=== PATIENT | male | born 1935 | race Caucasian/White ===

== ENCOUNTER → 2019-07-10 | Outpatient (CLI) | payer MEDICARE ==
[~2019-07-10] MED LIST: ALLI60 MG PO; AMIODARONE200 MG PO; AMLODIPINE10 MG PO; ASPIRIN 81M81 MG/TA2 PO; ASPIRIN E.C. 8181 MG PO; AVAPRO150 MG PO; BOSULIF100 MG PO; CALCIUM 600/VIT1 CAP PO; CALCIUM600 M2 PO; CALCIUM600 MG PO; COLACE 100100 MG/CAP PO; COREG 25MG25 MG/TAB PO; COUMADIN 1MG1 MG/TAB PO; COUMADIN 5MG5 MG/TAB PO; COZAAR 50MG50 MG/TAB PO; COZAAR100 MG PO; DESYREL 50MG50 MG PO; DIABETA 5MG5 MG/TAB PO; DIABETA5 MG PO; DIGOXIN0.125 MG PO; GLEEVEC PO; GLUCOSAMINE & C1 CAP PO; GLUCOSAMINE COM1 TAB PO; HCTZ 25MG25 MG PO; IRON325 M1 PO; JANUVIA 100MG100 MG PO; KLOR-CON20 MEQ PO; LANOXIN 0.120.125 MG PO; LANTUS100 U/ML SC; LASIX 40MG TABL40 MG PO; LIPITOR 40MG TA40 MG PO; LOPRESSOR50 MG PO; LOVAZA1 GM PO; MAREPA1200 MG PO; METFORMIN500 MG PO; MULTIPLE VITAMI1 CAP PO; MULTIVITAMIN PO; NIASPAN1000 MG PO; NORVASC 10MG10 MG PO; PACERONE100 MG PO; PRAVACHOL 40MG40 MG PO; PRAVACHOL80 MG PO; PRILOSEC 20MG20 MG PO; REVLIMID15 MG PO; SLO-NIACIN500 MG PO; SPRYCEL100 MG PO; TOPROL XL100 MG PO; VITAMIN D1000 IU PO; VITAMIN D31000 IU PO; WARFARIN2 MG PO
== END ==
LOC: COL.VAS 09:54
DX: I11.0 Hypertensive heart disease with heart failure (principal); I50.20 Unspecified systolic (congestive) heart failure; I25.5 Ischemic cardiomyopathy; I08.1 Rheumatic disorders of both mitral and tricuspid valves

== ENCOUNTER 2021-11-01 10:49 | Inpatient (IN) | payer MEDICARE ==
[2021-11-01] VITALS (535 sets, daily range): BP systolic 85–106; BP diastolic 60–75; PULSE 79–80; TEMP 94.8–97.1; O2SAT 76–100
[~2021-11-01] VITALS: Ht 167.6 cm; Wt 76.1 kg
[2021-11-01 14:01] LABS: BASO % 0.1 % (0.0-2.0); GRAN # 8.1 K/mm3 (1.4-6.5); GRAN % 86.5 % (42.2-75.2); LYMPH # 0.4 K/mm3 (1.2-3.4); LYMPH % 3.8 % (20.0-51.0); MEAN CELL VOLUME 80 fl (80.0-100.0); MEAN CORPUSCULAR HEMOGLOBIN 28 pg (27-31); MEAN CORPUSCULAR HGB CONC 35 g/dl (33.0-37.0); MEAN PLATELET VOLUME 11.4 fl (7.4-10.4); MONO # 0.9 K/mm3 (0.1-0.6); MONO % 9.1 % (1.7-9.3); PLATELET COUNT 352 K/mm3 (130-400); RED BLOOD COUNT 3.97 M/mm3 (4.20-5.60); REDCELL DISTRIBUTION WIDTH-CV 19.1 % (11.5-14.5)
[2021-11-01 14:04] LABS: HEMATOCRIT 31.8 % (42.0-52.0)
[2021-11-01 14:05] LABS: INR 3.8 (0.8-3.0); PROTHROMBIN TIME 43.2 SECONDS (9.7-12.8)
[2021-11-01 14:08] LABS: PARTIAL THROMBOPLASTIN TIME 31.8 SECONDS (26.0-37.0)
[2021-11-01 14:14] LABS: ALBUMIN 2.1 gm/dL (3.4-4.8); BILIRUBIN,TOTAL 0.5 mg/dL (0.2-1.2); C-REACTIVE PROTEIN 4.7 mg/dL (0.00-0.50); CALCIUM 8.4 mg/dL (8.4-10.2); CREATININE, serum 2.59 mg/dL (0.72-1.25); MAGNESIUM 2.2 mg/dL (1.6-2.6); POTASSIUM 4.8 mmol/L (3.5-4.5); TOTAL PROTEIN 6.2 gm/dL (6.2-8.1)
[2021-11-01 14:27] LABS: TROPONIN-I 0.156 ng/mL (0.00-0.033)
[2021-11-01] MEDS ORDERED: ELIQUIS 2.5 PO (14:47)
[2021-11-01] MEDS ORDERED: ALDACTONE 25MG25 M1 PO (14:48)
[2021-11-01] MEDS ORDERED: FARXIGA10 PO (14:48)
[2021-11-01] MEDS ORDERED: BUMEX 1MG TA1 MG/TA1 PO (14:50)
--- NOTE | 2021-11-01 18:45 | NUR ---
APPRAISAL ANALYST here for arterial line insertion. Timeout completed - all in agreement. 9505 Procedure finish time. Left radial arterial line secured with tegaderm and tape
[2021-11-01 20:17] LABS: ARTERIAL BLD GAS O2 SATURATION 99.4 % (92-100); ARTERIAL BLD GAS TCO2 CT 15.7; ARTERIAL BLOOD GAS BASE EXCESS -7.6 (-2-2); ARTERIAL BLOOD GAS pH 7.43 (7.35-7.45)
[2021-11-01 20:21] LABS: ARTERIAL BLOOD GAS PO2 250.1 mmHg (80-100)
[2021-11-02] VITALS (736 sets, daily range): BP systolic 58–116; BP diastolic 45–74; PULSE 79–106; TEMP 36.6; O2SAT 57–100
[2021-11-02 04:57] LABS: HEMATOCRIT 40.3 % (42.0-52.0); MEAN CELL VOLUME 82 fl (80.0-100.0); MEAN CORPUSCULAR HGB CONC 33 g/dl (33.0-37.0); MEAN PLATELET VOLUME 11.6 fl (7.4-10.4); RED BLOOD COUNT 4.92 M/mm3 (4.20-5.60); REDCELL DISTRIBUTION WIDTH-CV 20.3 % (11.5-14.5)
[2021-11-02 05:01] LABS: MEAN CORPUSCULAR HEMOGLOBIN 27 pg (27-31)
[2021-11-02 05:06] LABS: HEMOGLOBIN 13.4 g/dl (13.5-18.0); PLATELET COUNT 597 K/mm3 (130-400)
--- NOTE | 2021-11-02 05:09 | NUR ---
NO SEDATION VACATION/ ELEVATED PULSES AND VERY LOW B/PS/ ON NUMEROUS DRIPS AT THIS TIME
[2021-11-02 05:14] LABS: CALCIUM 8.7 mg/dL (8.4-10.2); CREATININE, serum 2.84 mg/dL (0.72-1.25); MAGNESIUM 2.3 mg/dL (1.6-2.6)
[2021-11-02 05:16] LABS: POTASSIUM 6.1 mmol/L (3.5-4.5)
[2021-11-02 05:18] LABS: ARTERIAL BLOOD GAS BASE EXCESS -13.8 (-2-2); ARTERIAL BLOOD GAS HCO3 11.3 meq/L (22-26); ARTERIAL BLOOD GAS PCO2 24.8 mmHg (35-45); ARTERIAL BLOOD GAS PO2 58.2 mmHg (80-100); ARTERIAL BLOOD GAS pH 7.28 (7.35-7.45)
[2021-11-02 05:54] LABS: LYMPHOCYTE 2 % (20.0-51.0); NEUTROPHILS 91 % (42.0-75.2)
[2021-11-02 05:55] LABS: ANISOCYTOSIS 2+; PLATELET ESTIMATE INCREASED (NORMAL); TARGET CELLS 1+
[2021-11-02 05:56] LABS: BURR CELLS 2+
[2021-11-02 05:57] LABS: OVALOCYTES 1+
--- NOTE | 2021-11-02 09:00 | NUR ---
Arterial Line assessed: line aspirates blood, flushes with moderate difficulty - after flushing, waveform is perfect with dichrotic notch and correlates with NIBP - however after 5-10 min waveform dampens and is 20-25mmHg less than NIBP and dichrotic notch is no longer present. If line is flushed again, accurate wavefrom returns then once again 5-10min later line dampens. Blood pressure documentation will be either NIBP or Arterial line after flushing and zeroing with accurate waveform
[2021-11-02 10:07] LABS: MUCOUS Present (NOT PRESENT); PH 5 (5-8); SQUAMOUS EPITHELIAL 0-2 /hpf (0-10); URINE APPEARANCE Cloudy (CLEAR/HAZY); URINE BACTERIA Rare /hpf (NONE SEEN); URINE BILIRUBIN Negative (NEGATIVE); URINE BLOOD 3+ (NEGATIVE); URINE COLOR Yellow (YELLOW); URINE GLUCOSE 3+ (NEGATIVE); URINE KETONE Negative (NEGATIVE); URINE LEUKOCYTE ESTERASE 1+ (NEGATIVE); URINE NITRATE Negative (NEGATIVE); URINE PROTEIN(semi-quant) 1+ (NEGATIVE); URINE RBC >50 /hpf (0-2); URINE UROBILINOGEN Negative (NEGATIVE)
--- NOTE | 2021-11-02 10:29 | NUR ---
The patient remains intubated and sedated. He is COVID positive. ALEXUS contacted the patient's daughter, Chio Dubon (ph#[phone]), to discuss discharge plan. The patient lives in [place] with his niece, Tonya. Chio states that the patient has someone with him 27/03. She states that he has had some confusion since September. She states that she lives in [place], [place] and comes down every weekend to assist with the patient. She reports that the patient needs supervision with ADLs and has a walker and liftchair. The patient's PCP is Dr. Toni Coats and he receives his medications from [facility] The patient has a DPOA-HC in EMR that designates Radha Ling. Chio reports that Radha is the patient's late . She states that she is the patient's DPOA-HC. SW inquired if she had a copy of the DPOA-HC. Chio reports that she does not and states that she does not think paperwork was ever done. Chio states that the patient is and has three children: Chio, Michael Dubon (ph#[phone]), and Steven Dubon. SW informed Chio that all three children are the patient's next of kin and decision makers, if the patient does not have a DPOA-HC. Chio verbalized understanding and states that there must be a DPOA-HC, since people refer to her as his DPOA-HC. She states that Dr. Coats's office may have a copy. ALEXUS contacted Dr. Coats's office and inquired if they have a DPOA-HC on file. The furnace process supervisor reports that it says they have one on file, but they will have to look for it and get back in touch [facility] ALEXUS. ALEXUS provided her with this SW's phone number and the ICU fax number. SW to continue to follow. *Discharge plan: Undetermined at this time*
[2021-11-02 10:37] LABS: COLLECTION METHOD CLEAN CATCH
--- NOTE | 2021-11-02 11:22 | NUR ---
ALEXUS received the patient's updated DPOA-HC, via fax, from Dr. Coats's office. The patient's DPOA-HC was his . The alternate is his daughter, Chio Dubon. ALEXUS placed the document in the patient's chart and notified the patient's RN. ALEXUS updated the patient's daughter, Chio.
[2021-11-02 11:48] LABS: ARTERIAL BLD GAS O2 SATURATION 99.2 % (92-100); ARTERIAL BLD GAS TCO2 CT 14.8; ARTERIAL BLOOD GAS BASE EXCESS -8.6 (-2-2); ARTERIAL BLOOD GAS HCO3 14.1 meq/L (22-26); ARTERIAL BLOOD GAS pH 7.41 (7.35-7.45)
[2021-11-02 11:49] LABS: ARTERIAL BLOOD GAS PCO2 22.8 mmHg (35-45)
[2021-11-02 14:02] LABS: CALCIUM 7.7 mg/dL (8.4-10.2); CREATININE, serum 2.96 mg/dL (0.72-1.25); POTASSIUM 5.1 mmol/L (3.5-4.5)
--- NOTE | 2021-11-02 17:00 | NUR ---
During sedation vacation pt able to open eyes, move all extremities - unable to follow commands. Sedation resumed at previous setting.
[2021-11-02 18:43] LABS: CALCIUM 7.5 mg/dL (8.4-10.2); CREATININE, serum 2.79 mg/dL (0.72-1.25); POTASSIUM 4.8 mmol/L (3.5-4.5)
[2021-11-02 20:31] LABS: ARTERIAL BLD GAS O2 SATURATION 97.7 % (92-100); ARTERIAL BLD GAS TCO2 CT 16.6; ARTERIAL BLOOD GAS BASE EXCESS -5.6 (-2-2); ARTERIAL BLOOD GAS PO2 100.4 mmHg (80-100); ARTERIAL BLOOD GAS pH 7.51 (7.35-7.45)
[2021-11-02 20:32] LABS: ARTERIAL BLOOD GAS PCO2 20.4 mmHg (35-45)
[2021-11-03] VITALS (692 sets, daily range): BP systolic 91–124; BP diastolic 48–63; PULSE 79–88; TEMP 36.4; O2SAT 87–100
--- NOTE | 2021-11-03 00:33 | NUR ---
2130 PTT RESULT RETURNED AND NOTED TO BE CRITICALLY HIGH STOPPED INFUSION PER ORDERS WITH REPEAT LAB ORDER FOR 2330 2330 REPEAT PTT OBTAINED PER PROTOCOL NOTED TO BE AT 58.1 AT 0019 ADJUSTED HEPARIN DRIP PER PROTOCOL BY DECREASING 300 UNITS PER HOUR TO 1200 UNITS/HR OR 12ML/HR WITH REPEAT PTT TO BE OBTAINED AT 0619
[2021-11-03 05:08] LABS: ALBUMIN 1.8 gm/dL (3.4-4.8); BILIRUBIN,TOTAL 0.8 mg/dL (0.2-1.2); CALCIUM 7.6 mg/dL (8.4-10.2); CREATININE, serum 2.71 mg/dL (0.72-1.25); POTASSIUM 4.7 mmol/L (3.5-4.5); TOTAL PROTEIN 5.7 gm/dL (6.2-8.1)
--- NOTE | 2021-11-03 05:12 | NUR ---
PATIENT AWAKENS TO TOUCH, OPENS EYES BUT DOES NOT APPEAR TO TRACK OR FOLLOW COMMANDS AT THIS TIME did not do sedation vacation at this time
[2021-11-03 05:22] LABS: ARTERIAL BLD GAS O2 SATURATION 97.1 % (92-100); ARTERIAL BLD GAS TCO2 CT 18.4; ARTERIAL BLOOD GAS BASE EXCESS -4.1 (-2-2); ARTERIAL BLOOD GAS HCO3 17.6 meq/L (22-26); ARTERIAL BLOOD GAS PO2 93.4 mmHg (80-100)
[2021-11-03 05:22] LABS: MEAN CORPUSCULAR HGB CONC 36 g/dl (33.0-37.0); MEAN PLATELET VOLUME 12.5 fl (7.4-10.4); RED BLOOD COUNT 4.02 M/mm3 (4.20-5.60)
[2021-11-03 05:23] LABS: ARTERIAL BLOOD GAS PCO2 23.4 mmHg (35-45)
[2021-11-03 05:28] LABS: HEMOGLOBIN 11.1 g/dl (13.5-18.0); MEAN CELL VOLUME 77 fl (80.0-100.0); MEAN CORPUSCULAR HEMOGLOBIN 28 pg (27-31)
[2021-11-03 05:31] LABS: PLATELET COUNT 317 K/mm3 (130-400)
[2021-11-03 05:50] LABS: ANISOCYTOSIS 2+; BAND 1 % (0-10); BURR CELLS 4+; LYMPHOCYTE 1 % (20.0-51.0); NEUTROPHILS 94 % (42.0-75.2); NUCLEATED RED BLOOD CELL 1 (0-6); PLATELET ESTIMATE NORMAL (NORMAL)
--- NOTE | 2021-11-03 12:12 | NUR ---
Initiated tube feed per order.
[2021-11-03 15:56] LABS: ARTERIAL BLD GAS O2 SATURATION 96.1 % (92-100); ARTERIAL BLD GAS TCO2 CT 20.4; ARTERIAL BLOOD GAS BASE EXCESS -2.9 (-2-2); ARTERIAL BLOOD GAS HCO3 19.6 meq/L (22-26); ARTERIAL BLOOD GAS PCO2 27.3 mmHg (35-45); ARTERIAL BLOOD GAS PO2 85.4 mmHg (80-100); ARTERIAL BLOOD GAS pH 7.47 (7.35-7.45)
--- NOTE | 2021-11-03 21:13 | NUR ---
DOBUTAMINE DRIP FOUND TO BE PROGRAMED INTO IV PUMP DOPAMINE. REPROGRAMMED WITH CORRECT DRUG AND CONCENTRATION, RESULTING IN RATE CHANGE FROM 6.8ML/HR TO 5.5ML/HR, DOSE OF 2.5MCG/KG/MIN.
[2021-11-04] VITALS (687 sets, daily range): BP systolic 108–143; BP diastolic 56–85; PULSE 80–137; TEMP 97.3–98.4; O2SAT 85–100
--- NOTE | 2021-11-04 04:39 | NUR ---
MORNING ASSESSMENT COMPLETE. TUBE FEEDS STOPPED AT THIS TIME FOR WEANING TRIAL AND POSSIBLE EXTUBATION THIS AM. WILL STOP SEDATION AT 0600 PER REPORT FROM DAY SHIFT RN YESTERDAY. PT HAS BEEN TOLERATING VENT WELL, VSS THROUGHOUT THIS SHIFT. WILL CONTINUE TO MONITOR.
[2021-11-04 05:15] LABS: ARTERIAL BLD GAS O2 SATURATION 91.2 % (92-100); ARTERIAL BLD GAS TCO2 CT 21.2; ARTERIAL BLOOD GAS BASE EXCESS -1.9 (-2-2); ARTERIAL BLOOD GAS HCO3 20.3 meq/L (22-26); ARTERIAL BLOOD GAS PCO2 27.1 mmHg (35-45); ARTERIAL BLOOD GAS PO2 60.9 mmHg (80-100); ARTERIAL BLOOD GAS pH 7.49 (7.35-7.45)
[2021-11-04 05:18] LABS: HEMOGLOBIN 10.6 g/dl (13.5-18.0); MEAN CELL VOLUME 79 fl (80.0-100.0); MEAN CORPUSCULAR HEMOGLOBIN 28 pg (27-31); MEAN CORPUSCULAR HGB CONC 35 g/dl (33.0-37.0); MEAN PLATELET VOLUME 11.4 fl (7.4-10.4); PLATELET COUNT 389 K/mm3 (130-400); RED BLOOD COUNT 3.86 M/mm3 (4.20-5.60); REDCELL DISTRIBUTION WIDTH-CV 19.8 % (11.5-14.5)
[2021-11-04 05:22] LABS: HEMATOCRIT 30.4 % (42.0-52.0)
[2021-11-04 05:39] LABS: CREATININE, serum 2.41 mg/dL (0.72-1.25); MAGNESIUM 2.2 mg/dL (1.6-2.6); POTASSIUM 4.4 mmol/L (3.5-4.5)
[2021-11-04 06:05] LABS: ANISOCYTOSIS 2+; LYMPHOCYTE 2 % (20.0-51.0); MICROCYTOSIS 1+; NEUTROPHILS 90 % (42.0-75.2); PLATELET ESTIMATE NORMAL (NORMAL)
[2021-11-04 06:06] LABS: BURR CELLS 3+
--- NOTE | 2021-11-04 06:07 | NUR ---
PTT RESULT 129.9, DRIP DECREASED BY 100 UN/HR PER PROTOCOL. SEDATION MEDS ALSO PLACED ON STANDBY AT THIS TIME FOR MORNING WEANING TRIAL.
--- NOTE | 2021-11-04 07:00 | NUR ---
RT AT BEDSIDE, CPAP TRIAL BEGINS. PATIENT PULLING AT RESTRAINTS AT TIMES AND HEART RATE ELEVATION NOTED. AGITATION SUBSIDES WITH ENCOURAGEMENT TO CALM AND EDUCATION PROVIDED REGARDING GOAL OF EXTUBATION. PATIENT RESPONDS WITH HEAD NOD AND BLINKING ON COMMAND. DR. NASCIMENTO AWARE OF ELEVATED HEART RATE AND AGITATION. ORDERS TO REMAIN OFF OF SEDATION AND PROCEED WITH EXTUBATION POST ABG.
--- NOTE | 2021-11-04 07:17 | NUR ---
PT IS PLACED ON CPAP TRIAL, CURRENTLY ON 5/5 35% AND TOLERATING WELL.
[2021-11-04 09:07] LABS: ARTERIAL BLD GAS O2 SATURATION 97.8 % (92-100); ARTERIAL BLOOD GAS BASE EXCESS -2.2 (-2-2); ARTERIAL BLOOD GAS HCO3 21.1 meq/L (22-26); ARTERIAL BLOOD GAS PCO2 31.5 mmHg (35-45); ARTERIAL BLOOD GAS pH 7.44 (7.35-7.45)
--- NOTE | 2021-11-04 09:27 | NUR ---
Dr. Cha plans to extubate the patient today. SW to continue to follow.
--- NOTE | 2021-11-04 09:30 | NUR ---
RT AND RN X 2 AT BEDSIDE, ORAL CARE AND SUCTIONING COMPLETED. ET TUBE REMOVED WITHOUT DIFFICULTY. PATIENT PLACED ON 5 L VIA OXYMASK WITH OXYGEN SATURATION OF 100%. DR NASCIMENTO ON UNIT AND NOTIFIED OF PATIENT STATUS. NEW ORDERS TO TITRATE OXYGEN.
--- NOTE | 2021-11-04 09:48 | NUR ---
patient was extubated at 0930
--- NOTE | 2021-11-04 09:49 | NUR ---
patient extubated and placed on 5L OM
--- NOTE | 2021-11-04 15:00 | NUR ---
Speech came to bedside to perfrom a basic speech eval. Coughed after sips of water and tolerated a few icechips with minimal coughing. Also stated did "ok" with applesauce and feels patient could do ok with crushed pills in applesauce. Otherwise speech does not feel it safe to proceed with feeding or drinking liquids at this time.
--- NOTE | 2021-11-04 15:45 | NUR ---
RECEIVED CALL FROM PATIENT DAUGHTER VIRGIL, UPDATE GIVEN. VIRGIL STATES PATIENT WAS INDEPENDENT UNTIL BEGINNING OF OCTOBER. PATIENT HAS BEEN DISORIENTED AND CONFUSED SINCE ONSET OF FEVER IN EARLY OCTOBER. PATIENT LIVES AT HOME BUT HAS REQUIRED 24 HOUR CARE FROM VIRGIL, HER BROTHER AND HER NIECE. VIRGIL STATES PATIENT ENJOYS WATCHING [employer] GAMES. VIRGIL SPEAKS WITH PATIENT ON PHONE AT THIS TIME.
--- NOTE | 2021-11-04 18:15 | NUR ---
After speech eval patient's lungs sounds are increasingly course. Has a productive sounding cough but unable to bring sputum up. Continues to be 92-95% on RA. Dr. Cha notified; no new orders at this time.
--- NOTE | 2021-11-04 20:00 | NUR ---
PATIENT NOTED TO BE WITH COARSE LUNGS SOUNDS TO UPPER LOBES BILATERALLY FREQUENT COUGHING AND ATTEMPTS TO CLEAR HIS THROAT BUT NOT BRING UP ANY SPUTUM, ASSISTED WITH MOUTH CARE.
--- NOTE | 2021-11-04 23:35 | NUR ---
SPOKE WITH KATELIN WINKLER REGARDING PATIENT HAVING ARRHYTHMIAS AND COMPLAINTS OF PAIN NEW ORDERS RECEIVED FOR EKG, BMP AND MG LEVELS AND TYLENOL SUPPOSITORY DUE TO PREVIOUSLY NOTED DIFFICULTY WITH SWALLOWING.
[2021-11-05] VITALS (715 sets, daily range): BP systolic 117–134; BP diastolic 77–99; PULSE 92–112; TEMP 96.9–97.9; O2SAT 87–100
[2021-11-05 01:01] LABS: CALCIUM 8.5 mg/dL (8.4-10.2); CREATININE, serum 2.37 mg/dL (0.72-1.25); MAGNESIUM 2.2 mg/dL (1.6-2.6); POTASSIUM 4.7 mmol/L (3.5-4.5)
--- NOTE | 2021-11-05 01:44 | NUR ---
E ICU PROVIDER DR. GRUBER NOTIFIED PER KATELIN WINKLER REQUEST TO KEEP INFORMED OF PATIENT STATUS DR. THOMAS UP ON THIS NURSE.
[2021-11-05 05:31] LABS: MEAN CELL VOLUME 81 fl (80.0-100.0); MEAN CORPUSCULAR HEMOGLOBIN 28 pg (27-31); MEAN CORPUSCULAR HGB CONC 34 g/dl (33.0-37.0); MEAN PLATELET VOLUME 11.5 fl (7.4-10.4); PLATELET COUNT 360 K/mm3 (130-400); RED BLOOD COUNT 3.99 M/mm3 (4.20-5.60); REDCELL DISTRIBUTION WIDTH-CV 20.8 % (11.5-14.5)
[2021-11-05 05:33] LABS: ARTERIAL BLOOD GAS PCO2 30.7 mmHg (35-45); ARTERIAL BLOOD GAS pH 7.45 (7.35-7.45)
[2021-11-05 05:34] LABS: ARTERIAL BLD GAS O2 SATURATION 91.1 % (92-100); ARTERIAL BLD GAS TCO2 CT 21.8; ARTERIAL BLOOD GAS BASE EXCESS -2.3 (-2-2); ARTERIAL BLOOD GAS HCO3 20.8 meq/L (22-26); ARTERIAL BLOOD GAS PO2 60.1 mmHg (80-100)
[2021-11-05 05:36] LABS: HEMATOCRIT 32.2 % (42.0-52.0)
[2021-11-05 06:09] LABS: LYMPHOCYTE 3 % (20.0-51.0); NEUTROPHILS 89 % (42.0-75.2)
[2021-11-05 06:10] LABS: ANISOCYTOSIS 2+; BURR CELLS 2+; HYPOCHROMIA 1+; MICROCYTOSIS 1+; PLATELET ESTIMATE NORMAL (NORMAL); TARGET CELLS 1+
--- NOTE | 2021-11-05 06:30 | NUR ---
PATIENT HAS REMAINED AWAKE OR SLIGHTLY DOZING ALL SHIFT WITH AWAKENING OCCURING WITH SLIGHTEST NOISE, PATIENT CALLS OUT STATING THAT HE NEEDS HELP BUT UNABLE TO STATE WHAT HELP HE IS IN NEED OF EVEN WITH PROMPTING OF DIFFERENT THINGS I.E. DRINK, FOOD OR QUESTIONS IF HE IS IN PAIN OR NEEDS REPOSITIONED OR NEEDS TO HAVE BM, PATIENT REPLIES NO TO ALL QUESTIONS OR OCCASSIONALY A MAYBE HOWEVER WHEN PAIN MEDICATION OR REPOSITIONING PROVIDED (YES ANSWERS) PATIENT WAS NOT CONTENT MOVING HIMSELF BACK INTO POSITION HE DESIRED PATIENT DID HAVE ADDITIONAL LABS AND EKG OBTAINED DUE TO ARRYTHMIA THIS SHIFT
[2021-11-05 07:18] LABS: ALBUMIN 2.4 gm/dL (3.4-4.8); BILIRUBIN,TOTAL 0.8 mg/dL (0.2-1.2); CALCIUM 8.4 mg/dL (8.4-10.2); CREATININE, serum 2.29 mg/dL (0.72-1.25); POTASSIUM 4.4 mmol/L (3.5-4.5)
--- NOTE | 2021-11-05 16:38 | NUR ---
PATIENT TRANSFERRED TO ROOM 303 AFTER REPORT WAS GIVEN TO MEENU MAC. PATIENT TOELRATED THIS WELL. HE IS ONLY ORIENTED TO HIMSELF, BUT IS ABLE TO ANSWER SIMPLE QUESITONS. WILL CALL HIS DAUGHTER VIRGIL WITH UPDATE.
--- NOTE | 2021-11-05 18:39 | NUR ---
Patient admitted from the ICU to room 303. Report recieved from MEENU Barry. Assessment, med rec, allergies, and pharmacy completed. VSS. Patient A&Ox1. NG feeding started as ordered. Amio and heparin gtt running as ordered. Taveras in place, securement device in use, no kinks in tubing. PICC in place, no signs of complications at this time. Patient denies any pain, discomfort, SOA, or futher needs at this time. Suctioning at the bedside. Call light in reach. Fall percautions in place.
--- NOTE | 2021-11-05 19:03 | NUR ---
Unable to complete med rec due to patient's inability to communicate accurate information.
[2021-11-05 22:00] LABS: HEPATITIS A ANTIBODY-IGM Negative (Negative); HEPATITIS B SURFACE ANTIGEN Negative (Negative); HEPATITIS C VIRUS ANTIBODY Negative (Negative)
--- NOTE | 2021-11-05 22:11 | NUR ---
Contacted [facility] and spoke with Marley. Patient not a candidate for donation at this time. Referral #[id number]
--- NOTE | 2021-11-06 01:38 | NUR ---
Patient assessed around 2029. Patient had been alert and oriented at that time, denied pain and discomfort. Stopped Heparin drip at that time due to starting Eliquis. On room air. Denied SOB and dyspnea. HOB elevated. Recieving tube feedings via NG tube per orders. RT in with patient at that time as well. At 2117, telemetry called and stated that patient's HR was bradying down. This nurse and PCT went to room immediately to check on patient. Patient non-responsive, no pulse. Started CPR immediately, and called aiyana whitney. Time of called at 2134. Post mortem care provided. Family in with patient at this time.
--- NOTE | 2021-11-06 02:43 | NUR ---
home ([facility]) came and body released to them at this time.
== END 2021-11-06 02:44 | disposition expired | DRG 208 ==
LOC: ICU 10:49 → MEDICAL 11-05 17:24
PROVIDERS: Internal Medicine Infectious Disease; Internal Medicine Pulmonary Disease; Physician Assistant; Registered Nurse; ADMIT Internal Medicine
PROC: 5A1945Z Respiratory Ventilation, 24-96 Consecutive Hours (ICD-10-PCS; principal; 2021-11-01)
PROC: XW033E5 Introduction of Remdesivir Anti-infective into Peripheral Vein, Percutaneous Approach, New Technology Group 5 (ICD-10-PCS; 2021-11-01)
PROC: 02HV33Z Insertion of Infusion Device into Superior Vena Cava, Percutaneous Approach (ICD-10-PCS; 2021-11-01)
PROC: 0BH17EZ Insertion of Endotracheal Airway into Trachea, Via Natural or Artificial Opening (ICD-10-PCS; 2021-11-05)
DX: U07.1 COVID-19 (principal); J12.82 Pneumonia due to coronavirus disease 2019; J96.01 Acute respiratory failure with hypoxia; G92.9 Unspecified toxic encephalopathy; C90.00 Multiple myeloma not having achieved remission; I13.0 Hypertensive heart and chronic kidney disease with heart failure and stage 1 through stage 4 chronic kidney disease, or unspecified chronic kidney disease; I48.21 Permanent atrial fibrillation; E87.2 Acidosis; I50.42 Chronic combined systolic (congestive) and diastolic (congestive) heart failure; Z66 Do not resuscitate; I25.10 Atherosclerotic heart disease of native coronary artery without angina pectoris; I25.5 Ischemic cardiomyopathy; G47.33 Obstructive sleep apnea (adult) (pediatric); N18.30 Chronic kidney disease, stage 3 unspecified; E11.22 Type 2 diabetes mellitus with diabetic chronic kidney disease; T42.75XA Adverse effect of unspecified antiepileptic and sedative-hypnotic drugs, initial encounter; E78.5 Hyperlipidemia, unspecified; E87.5 Hyperkalemia; I95.9 Hypotension, unspecified; M1A.9XX0 Chronic gout, unspecified, without tophus (tophi); I46.9 Cardiac arrest, cause unspecified; D72.829 Elevated white blood cell count, unspecified; T38.0X5A Adverse effect of glucocorticoids and synthetic analogues, initial encounter; Z95.0 Presence of cardiac pacemaker; Z79.01 Long term (current) use of anticoagulants; Z85.6 Personal history of leukemia; Z79.82 Long term (current) use of aspirin; Z79.4 Long term (current) use of insulin
CPT/HCPCS: 99223-AI; 99232-AI; 99238; C1751; C9113; J0248; J0282; J0696; J1100; J1250; J1644; J1815; J1940; J2704; J3010; J7030; J7060; J7120